=== PATIENT | female | born 1985 | race Hispanic/Latino ===

== ENCOUNTER 2016-08-08 23:02 | Emergency (ER) | payer SELFPAY ==
[2016-08-09 01:37] LABS: Basophils % (Auto) 0.4 % (0.0-1.8); Hematocrit 41.1 % (30.3-42.9); Hemoglobin 13.3 gm/dl (10.1-14.3); Mean Corpuscular HGB Conc 32 % (30-34); Mean Corpuscular Hemoglobin 27 pg (28-32); Mean Corpuscular Volume 83 fl (79-97); Platelet Count 193 K/mm3 (140-440); Red Blood Count 4.97 M/mm3 (3.65-5.03); Red Cell Distribution Width 14.5 % (13.2-15.2); White Blood Count 9.9 K/mm3 (4.5-11.0)
[2016-08-09 01:47] LABS: Bacteria,Urine 2+ /HPF (Negative); Mucus,Urine FEW /HPF
[2016-08-09 01:48] LABS: Bilirubin,Urine NEG (Negative); Blood,Urine SM (Negative); Ketones,Urine NEG (Negative); Leukocyte Esterase,Urine MOD (Negative); Nitrite,Urine POS (Negative); Urobilinogen,Urine < 2.0 mg/dL (<2.0)
[2016-08-09 01:48] LABS: Anion Gap 15 mmol/L; BUN/Creatinine Ratio 8.75; Blood Urea Nitrogen 7 mg/dL (7-17); Calcium 8.9 mg/dL (8.4-10.2); Carbon Dioxide 25 mmol/L (22-30); Chloride 106.8 mmol/L (98-107); Glucose 109 mg/dL (65-100); Sodium 143 mmol/L (137-145)
[2016-08-09 04:10] VITALS: BP 124/88
[2016-08-09] MEDS ORDERED: XANAX PO ONE (04:32)
[2016-08-09] MEDS ORDERED: MACROBID PO ONE (04:32)
--- NOTE | 2016-08-09 04:33 | Emergency Department Report ---
ED General Adult HPI - General Chief complaint: Seizure Stated complaint: MIGRAINE/SEIZURE Time Seen by Provider: 08/09/16 04:21 Source: patient, RN notes reviewed, old records reviewed Mode of arrival: Ambulatory Limitations: No Limitations - History of Present Illness Initial comments: This is a 31-year-old female. She is previously unknown to me. Her primary care doctor is Dr. Cardona. Her neurologist is Dr. Rhodse Patient has a past reported history of seizure disorder, has been admitted to this hospital in the past for polysubstance overdose. She reports taking Keppra , 750 mg twice daily. The patient presents to the ER today complaining of having a seizure for 3 days. She reports that she's been awake the whole times. The patient complains of dysuria. The patient has not lost consciousness. The patient reports that she is losing track of time. The patient reports that she was out last night with her , was in the bathroom standing up, and then began to scream. She reports that she was gently lowered to a chair. There is no extremity weakness. There is no extremity numbness. There is no midline neck pain. Symptoms have been intermittent, patient reports no exacerbating or relieving factors. -: Gradual Severity scale (0 -10): 8 Consistency: intermittent Improves with: none Worsens with: none Associated Symptoms: confusion. denies: chest pain, loss of appetite, nausea/ vomiting - Related Data Home Medications Medication Instructions Recorded Confirmed Last Taken buPROPion SR [Wellbutrin Sr] 150 mg PO BID 08/09/16 08/09/16 08/08/16 Previous Rx's Medication Instructions Recorded Last Taken Type Fluconazole [Diflucan TAB] 150 mg PO ONCE #1 tablet 08/09/16 Unknown Rx Nitrofurantoin [place]/M-Cryst 100 mg PO Q12HR #13 capsule 08/09/16 Unknown Rx [Macrobid CAP] Allergies Allergy/AdvReac Type Severity Reaction Status Date / Time meperidine HCl [From Demerol] Allergy Unknown Verified 08/09/16 00:53 ED Review of Systems ROS: Stated complaint: MIGRAINE/SEIZURE Other details as noted in HPI Constitutional: denies: fever Eyes: denies: vision change ENT: denies: epistaxis Respiratory: denies: cough Cardiovascular: denies: chest pain Genitourinary: urgency, dysuria, frequency Musculoskeletal: denies: back pain Neurological: denies: weakness, confusion, abnormal gait Psychiatric: anxiety ED Past Medical Hx - Past Medical History Previous Medical History?: Yes Hx Sickle Cell Disease: No Hx Seizures: Yes - Surgical History Past Surgical History?: Yes Hx Open Heart Surgery: No Hx Cholecystectomy: Yes (2006) Hx Appendectomy: No Hx Breast Surgery: No Additional Surgical History: , LEFT FALLOPIAN TUBE REMOVED - Social History Smoking Status: Never Smoker - Medications Home Medications: Home Medications Medication Instructions Recorded Confirmed Last Taken Type Fluconazole [Diflucan TAB] 150 mg PO ONCE #1 tablet 08/09/16 Unknown Rx Nitrofurantoin [place]/M-Cryst 100 mg PO Q12HR #13 capsule 08/09/16 Unknown Rx [Macrobid CAP] buPROPion SR [Wellbutrin Sr] 150 mg PO BID 08/09/16 08/09/16 08/08/16 History ED Physical Exam - General Limitations: No Limitations General appearance: alert, in no apparent distress - Head Head exam: Present: atraumatic, normocephalic - Eye Eye exam: Present: normal appearance, PERRL, EOMI. Absent: nystagmus - ENT ENT exam: Present: normal exam, normal orophraynx, mucous membranes moist, normal external ear exam - Neck Neck exam: Present: normal inspection, full ROM. Absent: tenderness, meningismus - Respiratory Respiratory exam: Present: normal lung sounds bilaterally. Absent: respiratory distress, wheezes, rales, rhonchi, stridor, decreased breath sounds - Cardiovascular Cardiovascular Exam: Present: regular rate, normal rhythm, normal heart sounds. Absent: bradycardia, tachycardia, irregular rhythm, systolic murmur, diastolic murmur, rubs, gallop - GI/Abdominal GI/Abdominal exam: Present: soft, normal bowel sounds. Absent: distended, tenderness, guarding, rebound, rigid, pulsatile mass - Extremities Exam Extremities exam: Present: normal inspection, full ROM, normal capillary refill. Absent: tenderness, pedal edema, joint swelling, calf tenderness - Back Exam Back exam: Present: normal inspection, full ROM. Absent: tenderness, CVA tenderness (R), CVA tenderness (L), muscle spasm, paraspinal tenderness, vertebral tenderness - Neurological Exam Neurological exam: Present: alert, oriented X3, normal gait, other (Extraocular movements intact. Tongue midline. No facial droop. Facial sensation intact to light touch in the V1, V2, V3 distribution bilaterally. 5 and 5 strength in 4 extremities.. Sensation is intact to light touch in 4 extremities.). Absent : motor sensory deficit - Psychiatric Psychiatric exam: Present: normal affect, normal mood - Skin Skin exam: Present: warm, dry, intact, normal color. Absent: rash ED Course Vital Signs 08/09/16 08/09/16 00:53 04:08 Temperature 97.8 F 98.0 F Pulse Rate 94 H 86 Respiratory 18 20 Rate Blood Pressure 135/89 Blood Pressure 124/88 [Right] O2 Sat by Pulse 99 100 Oximetry - Reevaluation(s) Reevaluation #1: 08/09/16 04:56 Differential diagnosis: Migraine headache, cluster headache, tension headache, partial seizure, pseudoseizure, urinary tract infection, structural intracranial lesion Assessment and plan: 31-year-old female with reported history of seizure disorder, with complaint of atypical seizure while being awake. There is no convulsive activity, there is no bladder or bowel retention or incontinence. The patient did complain of nonspecific headache and nausea. To me, she denies sudden thunderclap headache. She has a GCS of 15, with an NIH score of 0, she walks with a steady gait. Of note, while I am interviewing the patient, she demonstrates remarkable dexterity coordination in manipulating her personal cell phone. She did endorse some irritative and obstructive urinary symptoms, and her urinalysis is consistent with urinary tract infection. She did not appear to be actively seizing right now, and she carries on a full conversation. I highly doubt acute intracranial pathology, she will be treated empirically with Macrobid, given Diflucan at her request because she reports that she typically develops a yeast infection after antibiotics, and we will obtain noncontrast CT scan of the brain. The patient reports that she is not driving a motor vehicle at this time. She is afebrile with reassuring vital signs, she is instructed to follow-up with her outpatient neurology specialist. Reevaluation #2: 08/09/16 05:20 Patient reporting that she is quite anxious. States the Xanax that was given to her in the emergency room is inadequate as she takes 2 g at home every now and then. 2 mg of intramuscular Valium is ordered. Reevaluation #3: 08/09/16 05:[address] Hoff pending CT head results if ct head negative would d/c ED Medical Decision Making - Lab Data Result diagrams: 08/09/16 01:21 08/09/16 01:21 Vital Signs 08/09/16 08/09/16 00:53 04:08 Temperature 97.8 F 98.0 F Pulse Rate 94 H 86 Respiratory 18 20 Rate Blood Pressure 135/89 Blood Pressure 124/88 [Right] O2 Sat by Pulse 99 100 Oximetry Lab Results 08/09/16 08/09/16 08/09/16 Range/Units 01:21 01:21 Unknown WBC 9.9 (4.5-11.0) K/mm3 RBC 4.97 (3.65-5.03) M/mm3 Hgb 13.3 (10.1-14.3) gm/dl Hct 41.1 (30.3-42.9) % MCV 83 (79-97) fl MCH 27 L (28-32) pg MCHC 32 (30-34) % RDW 14.5 (13.2-15.2) % Plt Count 193 (140-440) K/mm3 Lymph % (Auto) 31.5 (13.4-35.0) % Bledsoe % (Auto) 5.9 (0.0-7.3) % Eos % (Auto) 0.0 (0.0-4.3) % Baso % (Auto) 0.4 (0.0-1.8) % Lymph # 3.1 (1.2-5.4) K/mm3 Bledsoe # 0.6 (0.0-0.8) K/mm3 Eos # 0.0 (0.0-0.4) K/mm3 Baso # 0.0 (0.0-0.1) K/mm3 Seg Neutrophils % 62.2 (40.0-70.0) % Seg Neutrophils # 6.2 (1.8-7.7) K/mm3 Sodium 143 (137-145) mmol/L Potassium 4.0 (3.6-5.0) mmol/L Chloride 106.8 (98-107) mmol/L Carbon Dioxide 25 (22-30) mmol/L Anion Gap 15 mmol/L BUN 7 (7-17) mg/dL Creatinine 0.8 (0.7-1.2) mg/dL Estimated GFR > 60 ml/min BUN/Creatinine Ratio 8.75 % Glucose 109 H (65-100) mg/dL Calcium 8.9 (8.4-10.2) mg/dL Urine Color Yellow (Yellow) Urine Turbidity Slightly-cloudy (Clear) Urine pH 5.0 (5.0-7.0) Ur Specific [place] 1.025 (1.003-1.030) Urine Protein 30 mg/dl (Negative) mg/dL Urine Glucose (UA) Neg (Negative) mg/dL Urine Ketones Neg (Negative) mg/dL Urine Blood Sm (Negative) Urine Nitrite Pos (Negative) Ur Reducing Substances Not Reportable Urine Bilirubin Neg (Negative) Urine Ictotest Not Reportable Urine Urobilinogen < 2.0 (<2.0) mg/dL Ur Leukocyte Esterase Mod (Negative) Urine WBC (Auto) 75.0 H (0.0-6.0) /HPF Urine RBC (Auto) 5.0 (0.0-6.0) /HPF U Epithel Cells (Auto) 3.0 (0-13.0) /HPF Urine Bacteria (Auto) 2+ (Negative) /HPF Urine WBC Clumps 2+ /HPF Ur Transition Epith Cell 2 /HPF Hyaline Casts 2 /LPF Urine Mucus Few /HPF Urine HCG, Qual Negative (Negative) - Radiology Data Radiology results: report reviewed ct head negative Critical care attestation.: If time is entered above; I have spent that time in minutes in the direct care of this critically ill patient, excluding procedure time. ED Disposition Clinical Impression: Dysuria Disposition: DISCHARGED TO HOME OR SELFCARE Is pt being admited?: No Does the pt Need Aspirin: No Condition: Stable Instructions: Dysuria (ED) Additional Instructions: Do not drive a car or operate motor vehicles until seen and/or cleared by your private neurology specialist. Follow up with a neurology specialist within the next week. continue current outpatient seizure medications. Have a discussion with your neurologist regarding the utility and necessity of Wellbutrin. This is a medication that can decrease seizure threshold. Take the antibiotic therapy as directed, take the Diflucan as needed for yeast infection. Return to the ER Right away with fevers or chills, chest pain or shortness of breath, nausea or vomiting, inability to tolerate liquid feeds. Prescriptions: Fluconazole [Diflucan TAB] 150 mg PO ONCE #1 tablet Nitrofurantoin Bledsoe/M-Cryst [Macrobid CAP] 100 mg PO Q12HR #13 capsule Referrals: PRIMARY CARE, [Primary Care Provider] - 3-5 Days KAUSHIK CARNES MD [Staff Physician] - 3-5 Days MARGARITA MELISSA MD [Staff Physician] - 3-5 Days MISSY FRAGOSO MD [Staff Physician] - 3-5 Days
[2016-08-09] MEDS ORDERED: VALIUM IM ONE (05:20)
--- NOTE | 2016-08-09 06:22 | Cat Scan Report ---
FINAL REPORT PROCEDURE: CT HEAD/BRAIN WO CON TECHNIQUE: Computerized tomography of the head was performed without contrast material. HISTORY: headache COMPARISON: No prior studies are available for comparison. FINDINGS: Skull and scalp: Normal. Paranasal sinuses: Normal. Ventricles and subarachnoid spaces: Normal. Cerebrum: No evidence of hemorrhage, acute infarction or mass . Cerebellum and brainstem: No evidence of hemorrhage, acute infarction or mass. Vasculature: Normal. Comments: None. IMPRESSION: There is no evidence of an acute intracranial process
== END 2016-08-09 07:23 | disposition home or self-care (01) ==
LOC: ED 23:02
DX: R30.0 Dysuria (principal); Z88.8 Allergy status to other drugs, medicaments and biological substances
CPT/HCPCS: 36415; 70450; 80048; 81001; 81025; 85025; 96372; 99284; J3360

== ENCOUNTER 2017-12-22 18:31 | Emergency (ER) | payer BC ==
[2017-12-22 19:03] VITALS: BP 133/84
[2017-12-22] MEDS ORDERED: BENADRYL IV ONE (19:40)
[2017-12-22] MEDS ORDERED: ADRENALIN IM ONE (19:40)
[2017-12-22] MEDS ORDERED: NORCO 5/325 PO ONE (19:47)
[2017-12-22] MEDS ORDERED: TORADOL IV ONE (19:47)
--- NOTE | 2017-12-22 20:06 | Emergency Department Report ---
HPI - General Chief Complaint: Skin Rash Time Seen by Provider: 12/22/17 18:56 - HPI HPI: The patient is a 32-year-old female who presents for evaluation of rash. The patient reports itching rash to bilateral arms, legs, and body for the past one day since consuming a meal that she believes she is allergic to. She states that the itching rashes been severe, constant, improved with Benadryl. She has secondary complaint of left lower dental pain. The patient denies swelling of the lips, tongue, or neck, throat tightness, dyspnea, neck stiffness, dysphagia , stridor, drooling, difficulty tolerating secretions, dysphonia, hoarseness of voice, abdominal pain. ED Past Medical Hx - Past Medical History Hx Sickle Cell Disease: No Hx Seizures: Yes (pseudo-seizures) Hx Psychiatric Treatment: Yes (bipolar) Additional medical history: polycystic ovarian cysts - Surgical History Hx Open Heart Surgery: No Hx Cholecystectomy: Yes (2006) Hx Appendectomy: No Hx Breast Surgery: No Additional Surgical History: , LEFT FALLOPIAN TUBE REMOVED - Social History Smoking Status: Never Smoker Substance Use Type: None - Medications Home Medications: Home Medications Medication Instructions Recorded Confirmed Last Taken Type Fluconazole [Diflucan TAB] 150 mg PO ONCE #1 tablet 08/09/16 Unknown Rx Nitrofurantoin [place]/M-Cryst 100 mg PO Q12HR #13 capsule 08/09/16 Unknown Rx [Macrobid CAP] buPROPion SR [Wellbutrin Sr] 150 mg PO BID 08/09/16 08/09/16 08/08/16 History Ibuprofen [Motrin] 800 mg PO Q8HR PRN #15 tablet 12/22/17 Unknown Rx Penicillin Vk [Veetids TAB] 250 mg PO QID #20 tablet 12/22/17 Unknown Rx diphenhydrAMINE [Benadryl CAP] 50 mg PO Q8HR PRN #30 capsule 12/22/17 Unknown Rx predniSONE [Deltasone] 20 mg PO QDAY #3 tab 12/22/17 Unknown Rx traMADol [Ultram 50 MG tab] 50 mg PO Q6HR PRN #15 tablet 12/22/17 Unknown Rx ED Review of Systems ROS: Stated complaint: HIVES Other details as noted in HPI Constitutional: denies: fever ENT: denies: throat or neck pain Respiratory: denies: cough, shortness of breath Cardiovascular: denies: chest pain Endocrine: denies unexplained weight loss or gain Gastrointestinal: denies: abdominal pain, nausea Genitourinary: denies: dysuria Musculoskeletal: denies: leg swelling Skin: reports: rash Neurological: denies: headache Hematological/Lymphatic: denies: easy bleeding or easy bruising Psych: denies sadness or hopelessness Physical Exam - Physical Exam Vital Signs: Vital Signs 12/22/17 18:50 Temperature 98.6 F Pulse Rate 91 H Respiratory 18 Rate Blood Pressure 133/84 O2 Sat by Pulse 99 Oximetry Physical Exam: General: well-nourished, well-developed, no acute distress Head: Normocephalic, atraumatic Eyes: normal sclera ENT: Mucous membranes are pink and moist Neck: trachea midline, neck supple, No neck stiffness, no cervical adenopathy Respiratory: Breath sounds equal bilaterally, no wheezing, rales, or rhonchi Cardio: S1 and S2 present, no murmurs, rubs, gallops, capillary refill is brisk Abdomen: Normoactive bowel sounds, soft abdomen, no tenderness Musc: No pitting edema Skin: Red raised blanching circular rash present to the arms and legs bilaterally Neuro: no facial drooping, normal speech Psych: Normal affect ED Course Vital Signs 12/22/17 18:50 Temperature 98.6 F Pulse Rate 91 H Respiratory 18 Rate Blood Pressure 133/84 O2 Sat by Pulse 99 Oximetry ED Medical Decision Making - Medical Decision Making The patient was seen and examined by myself. The patient is placed on a air sampling and monitoring and continuous pulse ox. On initial evaluation, the patient was found to be in no distress. Evaluation orders were placed. The patient was given IV site measuring, and IV Benadryl for her hives and itching. The patient was given a tablet of Tylenol 3 for her dental pain. The patient was reevaluated and reported that their symptoms were markedly improved. The patient is stable for discharge with outpatient follow-up. The patient is given follow-up and return instructions. The patient expressed understanding and agreed with the plan. The patient is discharged in stable condition. Critical care attestation.: If time is entered above; I have spent that time in minutes in the direct care of this critically ill patient, excluding procedure time. ED Disposition Clinical Impression: Dermatitis due to allergic reaction to food, Dental caries extending into pulp Disposition: DC-01 TO HOME OR SELFCARE Is pt being admited?: No Does the pt Need Aspirin: No Condition: Stable Instructions: Dental Caries (ED), Urticaria (ED), Toothache (ED) Prescriptions: diphenhydrAMINE [Benadryl CAP] 50 mg PO Q8HR PRN #30 capsule PRN Reason: Itching Ibuprofen [Motrin] 800 mg PO Q8HR PRN #15 tablet PRN Reason: Pain Penicillin Vk [Veetids TAB] 250 mg PO QID #20 tablet predniSONE [Deltasone] 20 mg PO QDAY #3 tab traMADol [Ultram 50 MG tab] 50 mg PO Q6HR PRN #15 tablet PRN Reason: Pain Referrals: [facility] [Outside] - 3-5 Days [facility] [Provider Group] - 3-5 Days Time of Disposition: 20:07
== END 2017-12-22 20:45 | disposition home or self-care (01) ==
LOC: ED 18:31
DX: L27.2 Dermatitis due to ingested food (principal); K02.9 Dental caries, unspecified; Z90.49 Acquired absence of other specified parts of digestive tract
CPT/HCPCS: 96374; 96375; 99284; J1200; J1885; J2930